=== PATIENT | female | born 1975 | race Caucasian/White ===

== ENCOUNTER → 2021-08-13 | Outpatient (CLI) | payer OTHER ==
--- NOTE | 2021-08-13 09:37 | US ---
EXAMINATION TYPE: US thyroid st tissue head/neck DATE OF EXAM: 08/13/2021 COMPARISON: NONE CLINICAL HISTORY: E04.1 SINGLE THYROID NODULE. history of thyroid nodules GLAND SIZE: Right Lobe: 3.8 x 1.7 x 1.7 cm Overall Parenchyma: homogenous Left Lobe: 4.0 x 1.4 x 1.5 cm Overall Parenchyma: homogeneous Isthmus Thickness: 0.4 cm NODULES RIGHT: # of nodules measured on right: 0 LEFT: # of nodules measured on left: sub-centimeter nodule mid = 0.5cm ISTHMUS: # of nodules measured in the isthmus: 0 Bilateral neck scanned, no evidence of lymphadenopathy. IMPRESSION: Subcentimeter nodule left thyroid lobe.
== END | disposition home or self-care (01) ==
LOC: RADMAMWWP 08:40
PROVIDERS: ATTEND Family Medicine
DX: Z12.31 Encounter for screening mammogram for malignant neoplasm of breast (principal); E04.1 Nontoxic single thyroid nodule
CPT/HCPCS: 76536; 77067

== ENCOUNTER → 2022-08-14 | Outpatient (CLI) | payer OTHER ==
--- NOTE | 2022-08-15 07:44 | MM ---
Reason for Exam: Screening (asymptomatic). Last screening mammogram was performed 12 month(s) ago. Patient History: Menarche at age 10. First Full-Term at age 24. Patient has history of breast feeding. Maternal grandmother had breast cancer. Risk Values: Ambreen 5 year model risk: 1.0%. NCI Lifetime model risk: 10.0%. Prior Study Comparison: 03/31/2019 Screening Mammogram, [place]. 04/03/2020 Screening Mammogram, [place]. 08/13/2021 Bilateral Screening Mammogram, [facility]. Tissue Density: There are scattered fibroglandular densities. Findings: Analyzed By CAD. Stable asymmetric prominent tissue anteriorly in the right breast on MLO view. There is no suspicious group of microcalcifications or new suspicious mass in either breast. Overall Assessment: Negative, BI-RAD 1 Management: Screening Mammogram of both breasts in 1 year. . Patient should continue monthly self-breast exams. A clinical breast exam by your physician is recommended on an annual basis. This exam should not preclude additional follow-up of suspicious palpable abnormalities. Note on Ambreen scores and lifetime risk: 1. A Ambreen score greater than 3% is considered moderate risk. If this is the case, consider specialist referral to assess eligibility for a risk reducing agent. 2. If overall lifetime risk for the development of breast cancer is 20% or higher, the patient may qualify for future screening with alternating mammogram and breast MRI. Electronically signed and approved by: Lars Lynn M.D.
== END | disposition home or self-care (01) ==
LOC: RADMAMWWP 08:14
PROVIDERS: ATTEND Family Medicine
DX: Z12.31 Encounter for screening mammogram for malignant neoplasm of breast (principal); Z80.3 Family history of malignant neoplasm of breast
CPT/HCPCS: 77063; 77067

== ENCOUNTER → 2023-07-10 | Outpatient (CLI) | payer OTHER ==
--- NOTE | 2023-07-10 13:02 | CA ---
Stress Echo Report Jessica Mccann Age: 48 Gender: F : 1975 Exam Date: 07/10/2023 10:30 Exam Location: [facility] Ht (in): 67 Wt (lb): 200 Ordering Physician: Yamil Russell MD Referring Physician: Yvonne ALEJANDRO Critical Care Physician: Sudhakar Gill Technologist Procedure CPT: Indication: R06.09 Other forms of dyspnea ICD-9 Codes: Rhythm: Patient History: Cardiac Medications: CARDIZEM, ELIQUIS, PANTOPRAZOLE, ENBRAL Medications in past 24 hours: Contrast: N/A Stress Results Protocol: Harpreet Total dose(mL): NA Exercise Duration (min:sec): 7:[address] Depression (mm): Angina Score: Wells Score: METS: 9.8 Resting HR: 77 Resting BP: 150 / 64 Peak HR: 157 Peak BP: 156 / 69 Max Predicted HR: 170 92 % Max Predicted HR Target HR: 145 Double Product: [id number] Stress Summary: Patient exercised on Harpreet protocol for 7 minutes 30 seconds achieving 9.8 METS. Patient achieved 92% of asymptomatic from heart rate. Patient had shortness of breath at the end of the protocol due to which the treadmill protocol was terminated. There was no reported chest pain chest pressure BP Response: Reason for Termination: TARGET HR REACHED/MAX EXERTION Cardiac Symptoms: DIFFICULTY IN BREATHING ECG Analysis Resting ECG: Normal sinus rhythm, normal axis, heart rate 60 beats per min Stress EC mm upsloping ST depressions at peak exercise. The changes recovered back to baseline early in recovery. Arrhythmia: Occasional PVCs during the peak stress. No sustained arrhythmia Echo Analysis Resting Echo: Normal global and segmental systolic function. No obvious regional wall motion abnormality Peak Echo Analysis: Normal augmentation of global and segmental systolic function. No stress-induced regional wall motion normality MEASUREMENTS (Male/Female) Normal Values CONCLUSIONS Good exercise tolerance for age achieving 9.8 METS Mildly abnormal ECG response to treadmill exercise Nonischemic ECG response to treadmill exercise Normal hemodynamic and clinical response to treadmill exercise Overall normal treadmill echo stress test Dr Yobany Gupta (Electronically Signed) Final Date: 10 July 2023 13:01
== END | disposition home or self-care (01) ==
LOC: RADNMMAIN 09:45
PROVIDERS: ATTEND Family Medicine
DX: R94.31 Abnormal electrocardiogram [ECG] [EKG] (principal); R06.09 Other forms of dyspnea
CPT/HCPCS: 93351

== ENCOUNTER → 2023-07-15 | Outpatient (CLI) | payer OTHER ==
--- NOTE | 2023-07-15 08:22 | US ---
EXAMINATION TYPE: US thyroid st tissue head/neck DATE OF EXAM: 07/15/2023 COMPARISON: 08/13/2021 CLINICAL INDICATION: Female, 48 years old with history of E04.1 NONTOXIC SINGLE THYROID NODULE; HX of thyroid nodules GLAND SIZE: Right Lobe: 3.7 x 1.3 x 1.4 cm Overall Parenchyma: slightly heterogeneous Left Lobe: 4.0 x 1.4 x 1.6 cm Overall Parenchyma: slightly heterogeneous Isthmus Thickness: 0.3 cm NODULES RIGHT: # of nodules measured on right: 1 1. 1.1 X 0.8 x 1.0 cm, mid medial, solid or almost completely solid, hypoechoic nodule, which is wi lin than tall, with smooth margins, without echogenic foci. not seen prior LEFT: # of nodules measured on left: 2 1. 0.4 X 0.2 x 0.3 cm, mid medial, solid or almost completely solid, hypoechoic nodule, which is wi lin than tall, with smooth margins, without echogenic foci. Prior size: 0.5 x 0.3 x 0.4 cm 2. 0.9 X 0.5 x 0.8 cm, mid medial, solid or almost completely solid, hypoechoic nodule, which is w ider than tall, with smooth margins, without echogenic foci. not seen prior ISTHMUS: # of nodules measured in the isthmus: 0 Bilateral neck scanned, there is a 1.0 cm lymph node seen with a 0.2cm cortex on the right lateral ne ck. IMPRESSION: Subcentimeter nonspecific nodularity
== END | disposition home or self-care (01) ==
LOC: RADUSWWP 07:34
PROVIDERS: ATTEND Family Medicine
DX: E04.2 Nontoxic multinodular goiter (principal)
CPT/HCPCS: 76536

== ENCOUNTER → 2023-08-18 | Outpatient (CLI) | payer OTHER ==
--- NOTE | 2023-08-19 18:48 | MM ---
Reason for Exam: Screening (asymptomatic). Last screening mammogram was performed 12 month(s) ago. Patient History: Menarche at age 10. First Full-Term at age 24. Patient has history of breast feeding. Maternal grandmother had breast cancer. Risk Values: Ambreen 5 year model risk: 1.1%. NCI Lifetime model risk: 9.9%. Prior Study Comparison: 04/03/2020 Screening Mammogram, [place]. 08/13/2021 Bilateral Screening Mammogram, [facility]. 08/14/2022 Bilateral MG 3D screening mammo w/cad, [facility]. Tissue Density: There are scattered areas of fibroglandular density. Findings: Analyzed By CAD. Chronic nodularity in the left breast. In the right breast at 8:00, focal asymmetry anterior depth has become gradually larger. Further evaluation is recommended. Overall Assessment: Incomplete: need additional imaging evaluation, BI-RAD 0 Management: Special View Mammogram of the right breast. Diagnostic Breast Ultrasound of the right breast. . [facility] will attempt to contact patient to return for supplemental views and ultrasound if indicated. Electronically signed and approved by: Leonel Roe M.D. Radiologist
== END | disposition home or self-care (01) ==
LOC: RADMAMWWP 08:16
PROVIDERS: ATTEND Family Medicine
DX: Z12.31 Encounter for screening mammogram for malignant neoplasm of breast (principal); Z80.3 Family history of malignant neoplasm of breast
CPT/HCPCS: 77063; 77067

== ENCOUNTER → 2023-08-21 | Outpatient (CLI) | payer OTHER ==
--- NOTE | 2023-08-21 09:07 | MM ---
Reason for Exam: Clinical finding. Last screening mammogram was performed less than 1 month ago. Patient History: Menarche at age 10. First Full-Term at age 24. Patient has history of breast feeding. Maternal grandmother had breast cancer at or over age 50. Maternal aunt (great) had breast cancer at or over age 50. Maternal aunt (great) had breast cancer at or over age 50. Risk Values: Ambreen 5 year model risk: 1.1%. NCI Lifetime model risk: 9.9%. Prior Study Comparison: 03/31/2019 Screening Mammogram, [place]. 04/03/2020 Screening Mammogram, [place]. 08/13/2021 Bilateral Screening Mammogram, [facility]. 08/14/2022 Bilateral MG 3D screening mammo w/cad, [facility]. 08/18/2023 Bilateral MG 3D screening mammo w/cad, [facility]. Tissue Density: Right: There are scattered areas of fibroglandular density. Findings: Analyzed By CAD. Persistent lobulated focal asymmetry in the 9:00 position right breast anterior to middle depth. Further ultrasound evaluation recommended. Overall Assessment: Incomplete: need additional imaging evaluation, BI-RAD 0 Management: Diagnostic Breast Ultrasound of the right breast. Electronically signed and approved by: Leonel Roe M.D. Radiologist
--- NOTE | 2023-08-21 09:21 | USB ---
Reason for Exam: Additional evaluation requested from abnormal screening. Patient History: Menarche at age 10. First Full-Term at age 24. Patient has history of breast feeding. Maternal grandmother had breast cancer at or over age 50. Maternal aunt (great) had breast cancer at or over age 50. Maternal aunt (great) had breast cancer at or over age 50. Risk Values: Ambreen 5 year model risk: 1.1%. NCI Lifetime model risk: 9.9%. Technique: Method: Targeted. Doppler: Color. Patient Position: Supine. Prior Study Comparison: 08/13/2021 Bilateral Screening Mammogram, [facility]. 08/14/2022 Bilateral MG 3D screening mammo w/cad, [facility]. 08/18/2023 Bilateral MG 3D screening mammo w/cad, [facility]. Findings: The lower outer quadrant of the right breast, the axilla of the right breast and the retroareolar of the right breast were scanned. Targeted ultrasound at the mammographic position, 8:00, shows a hypoechoic somewhat irregular area measuring 1.1 x 1.1 x 0.8 cm. Additional scanning in the subareolar region and axilla. No other solid or cystic lesions or axillary lymphadenopathy. Overall Assessment: Suspicious, BI-RAD 4 Management: Ultrasound Core Biopsy of the right breast. Electronically signed and approved by: Leonel Roe M.D. Radiologist
== END | disposition home or self-care (01) ==
LOC: RADMAMWWP 08:22
PROVIDERS: ATTEND Family Medicine
DX: R92.321 Mammographic fibroglandular density, right breast (principal); Z80.3 Family history of malignant neoplasm of breast
CPT/HCPCS: 77061; 77065

== ENCOUNTER → 2023-08-27 | Day surgery (SDC) | payer OTHER ==
--- NOTE | 2023-09-01 13:31 | MM ---
Reason for Exam: Post Procedure Mammogram. Last screening mammogram was performed less than 1 month ago. Patient History: Menarche at age 10. First Full-Term at age 24. Patient has history of breast feeding. Maternal grandmother had breast cancer at or over age 50. Maternal aunt (antonia) had breast cancer at or over age 50. Maternal aunt (antonia) had breast cancer at or over age 50. Risk Values: Ambreen 5 year model risk: 1.1%. NCI Lifetime model risk: 9.9%. Prior Study Comparison: 08/14/2022 Bilateral MG 3D screening mammo w/cad, [place]. 08/18/2023 Bilateral MG 3D screening mammo w/cad, [facility]. 08/21/2023 Right MG 3D work up w/cad RT, [facility]. Tissue Density: Right: There are scattered areas of fibroglandular density. Pathology Description: Location: 8 o'clock. Marker Left Behind. Needle Type: Mammotome Cores: 5 Gauge: 13 The procedure of ultrasound guided core biopsy was explained to the patient. Benefits, alternatives, and risks were discussed. An informed consent was then obtained. The 6 mm suspicious mammographic correlate is identified at the 8:00 position right breast and targeted for biopsy. The patient was placed in supine positioning for imaging and for the procedure. The overlying skin was prepped and draped in usual sterile fashion. Lidocaine was used as anesthetic into the skin and subcutaneous tissue up to area of concern in the right breast. Under ultrasound guidance, a 13-gauge vacuum-assisted mammotome Elite biopsy gun was used to obtain 5 core samples. Following this, a butterfly clip was left in lesion. The patient tolerated the procedure well without any immediate complication. The patient was kept in the radiology department for short stay after the procedure and then discharged home in stable condition. Postprocedure mammogram: The patient was transferred to mammography for physician ordered post procedure mammogram for clip placement verification. Post procedure mammogram shows clip at the site of mammographic abnormality. IMPRESSION: Successful, uncomplicated ultrasound guided core biopsy of the mammographic correlate within the 8:00 right breast, full pathology results to follow. Pathology Results: Result: Benign, Fibroadenomatoid hyperplasia. Pathology and radiology were reviewed. Findings are concordant. RIGHT BREAST, CORE BIOPSY: Fibroadenoma/fibroadenomatoid hyperplasia and background fibrocystic changes. Negative for malignancy. Calcifications are focally identified. Overall Assessment: Benign Assessment: MG diagnostic mammo RT wo CAD - Right: Benign, BI-RAD 2. Management: Diagnostic Mammogram of the right breast in 6 months. Electronically signed and approved by: Leonel Roe M.D. Radiologist
== END ==
LOC: RADUSWWP 10:09
PROVIDERS: ATTEND Family Medicine
DX: D24.1 Benign neoplasm of right breast (principal); N62 Hypertrophy of breast; R92.8 Other abnormal and inconclusive findings on diagnostic imaging of breast
CPT/HCPCS: 88305; 77065; 19083; A4648

== ENCOUNTER → 2024-02-23 | Outpatient (CLI) | payer OTHER ==
--- NOTE | 2024-02-25 21:59 | MM ---
Reason for Exam: Follow-up at short interval from prior study. Last screening mammogram was performed 6 month(s) ago. Patient History: Menarche at age 10. First Full-Term at age 24. Patient has history of breast feeding. Previous Hyperplasia w/o Atypia at age 48. 08/27/2023, Benign US biopsy breast VAD RT on the right side. Maternal grandmother had breast cancer at or over age 50. Maternal aunt (great) had breast cancer at or over age 50. Maternal aunt (great) had breast cancer at or over age 50. Risk Values: Ambreen 5 year model risk: 1.3%. NCI Lifetime model risk: 11.6%. Prior Study Comparison: 08/18/2023 Bilateral MG 3D screening mammo w/cad, [facility]. 08/21/2023 Right MG 3D work up w/cad RT, [facility]. 08/27/2023 Right MG diagnostic mammo RT wo CAD, [facility]. Tissue Density: Right: There are scattered areas of fibroglandular density. Findings: Analyzed By CAD. Pattern appears stable. Core marker is within a focal asymmetric density was biopsied. No suspicious groups of microcalcifications, spiculated or lobular masses, architectural distortion or other secondary signs of malignancy are mammographically apparent. Overall Assessment: Benign, BI-RAD 2 Management: Screening Mammogram of both breasts in 6 months. A negative mammogram report should not preclude additional follow up of suspicious palpable abnormalities. Patient should continue monthly self breast exam. A clinical breast exam by your physician is recommended on an annual basis and results should be correlated with mammographic findings. Note on Ambreen scores and lifetime risk: 1. A Ambreen score greater than 3% is considered moderate risk. If this is the case, consider specialist referral to assess eligibility for a risk reducing agent. 2. If overall lifetime risk for the development of breast cancer is 20% or higher, the patient may qualify for future screening with alternating mammogram and breast MRI. [facility], , 02/25/2024 9:56 PM. Electronically signed and approved by: Miguel Walters D.O. Radiologis
== END | disposition home or self-care (01) ==
LOC: RADMAMWWP 10:31
PROVIDERS: ATTEND Family Medicine
DX: R92.323 Mammographic fibroglandular density, bilateral breasts (principal); Z80.3 Family history of malignant neoplasm of breast
CPT/HCPCS: 77061; 77065